=== PATIENT | female | born 1985 | race Caucasian/White ===

== ENCOUNTER 2018-03-04 20:50 | Emergency (ER) | payer BC, OTHER ==
[~2018-03-04] VITALS: Ht 167.6 cm; Wt 77.1 kg
[~2018-03-04 20:50] MED LIST: TYLENOL PO
--- NOTE | 2018-03-04 21:18 | NUR ---
Patient discharged to home in stable conditon. Written and verbal after care instructions given. Patient verbalizes understanding of instructions.
== END 2018-03-04 21:19 | disposition home or self-care (01) ==
LOC: ER 20:52
DX: J06.9 Acute upper respiratory infection, unspecified (principal); E78.5 Hyperlipidemia, unspecified; K21.9 Gastro-esophageal reflux disease without esophagitis; Z79.899 Other long term (current) drug therapy
CPT/HCPCS: A4663

== ENCOUNTER 2024-04-05 16:02 | Emergency (ER) | payer BC, OTHER ==
[~2024-04-05] VITALS: Ht 167.6 cm; Wt 72.6 kg
[2024-04-05 17:55] VITALS: BP 127/76; O2SAT 100
== END 2024-04-05 17:56 | disposition home or self-care (01) ==
LOC: ER 16:02
DX: S93.402A Sprain of unspecified ligament of left ankle, initial encounter (principal); E78.5 Hyperlipidemia, unspecified; K21.9 Gastro-esophageal reflux disease without esophagitis; F41.9 Anxiety disorder, unspecified; Z88.7 Allergy status to serum and vaccine; Z87.09 Personal history of other diseases of the respiratory system; Z87.2 Personal history of diseases of the skin and subcutaneous tissue; W19.XXXA Unspecified fall, initial encounter; Y93.89 Activity, other specified; Y92.89 Other specified places as the place of occurrence of the external cause; Y99.8 Other external cause status
CPT/HCPCS: 73600; 73620; A4606; A4663